=== PATIENT | female | born 1990 | race Caucasian/White ===

== ENCOUNTER 2017-02-21 16:11 | Emergency (ER) | payer MEDICAID ==
[2017-02-21 17:57] LABS: HCG SERUM NEGATIVE (NEGATIVE)
[2017-02-21 18:21] LABS: APPEARANCE CLEAR (CLEAR); COLOR YELLOW (YELLOW)
[2017-02-21 18:22] LABS: BILIRUBIN NEGATIVE (NEGATIVE); GLUCOSE NEGATIVE (NEGATIVE); KETONE NEGATIVE (NEGATIVE); NITRITE NEGATIVE (NEGATIVE); PROTEIN NEGATIVE (NEGATIVE); UROBILINOGEN NORMAL (NORMAL)
[2017-02-21 18:23] LABS: BACTERIA MODERATE /hpf (NONE SEEN); EPITHELIAL CELLS 0-5 /hpf (0-5); RED CELLS - URINE OCC /hpf (0-5); WHITE CELLS - URINE 0-5 /hpf (0-5)
[2017-02-21 19:12] LABS: BASOPHILS 0.5 % (0-2); EOSINOPHILS 4.7 % (0-7); HEMATOCRIT 39.8 % (36.0-48.0); HEMOGLOBIN 13.8 g/dL (12-16); LYMPHOCYTES 39.7 % (15-50); MCH 33.3 pg (26.0-34.0); MCHC 34.7 g/dL (31.0-37.0); MCV 95.9 fL (80.0-100.0); MEAN PLATELET VOLUME 10.9 fL (7.4-10.4); MONOCYTES 7.7 % (2-11); NEUTROPHILS 47.4 % (40-80); PLATELET COUNT 272 10x3/uL (130-400); RBC 4.15 10x6/uL (4.00-5.40); RDW 12.1 % (11.5-14.5)
[2017-02-21 19:17] LABS: ALBUMIN 4.1 g/dL (3.4-5.0); ALKALINE PHOSPHATASE 70 U/L (46-116); ALT (SGPT) 14 U/L (10-68); CALC OSMOLALITY 277 mosm/kg (275-300); CALCIUM 9.6 mg/dL (8.5-10.1); CARBON DIOXIDE 29.6 mmol/L (21.0-32.0); CHLORIDE - SERUM 104 mmol/L (98-107); CREATININE - SERUM 0.5 mg/dL (0.6-1.3); GLUCOSE 96 mg/dL (74-106); POTASSIUM - SERUM 4.3 mmol/L (3.5-5.1); PROTEIN - SERUM 7.6 g/dL (6.4-8.2); SODIUM 140 mmol/L (136-145); UREA NITROGEN 9 mg/dL (7-18); eGFR NON AFRICAN AMERICAN > 90 mL/min (90-120)
== END 2017-02-21 20:13 | disposition home or self-care (01) ==
LOC: D.ER 16:11
PROVIDERS: Emergency Medicine; Physician Assistant
DX: R10.9 Unspecified abdominal pain (principal); N39.0 Urinary tract infection, site not specified

== ENCOUNTER 2018-02-25 12:12 | Emergency (ER) | payer MEDICAID ==
[~2018-02-25] VITALS: Ht 160 cm; Wt 45.5 kg
[2018-02-25 12:23] VITALS: Ht 160 cm; Wt 45.5 kg
[2018-02-25] MEDS ORDERED: CLEOCIN HCL300 MG PO (12:58)
[2018-02-25] MEDS ORDERED: TORADOL10 MG PO (12:58)
[2018-02-25 13:11] VITALS: BP 128/69
== END 2018-02-25 13:11 | disposition home or self-care (01) ==
LOC: D.ER 12:12
DX: K08.89 Other specified disorders of teeth and supporting structures (principal); S02.5XXA Fracture of tooth (traumatic), initial encounter for closed fracture; X58.XXXA Exposure to other specified factors, initial encounter; Y93.89 Activity, other specified; Y92.019 Unspecified place in single-family (private) house as the place of occurrence of the external cause

== ENCOUNTER 2018-03-25 12:51 | Emergency (ER) | payer MEDICAID ==
[~2018-03-25] VITALS: Ht 160 cm; Wt 47.7 kg
[~2018-03-25 12:51] MED LIST: CLEOCIN HCL300 MG PO; TORADOL10 MG PO
[2018-03-25 13:01] VITALS: Ht 160 cm; Wt 47.7 kg
[2018-03-25] MEDS ORDERED: VOLTAREN75 MG PO (16:10)
[2018-03-25] MEDS ORDERED: BACLOFEN20 M1 PO (16:10)
[2018-03-25 16:15] VITALS: BP 146/91
== END 2018-03-25 16:16 | disposition home or self-care (01) ==
LOC: D.ER 12:51
DX: S49.92XA Unspecified injury of left shoulder and upper arm, initial encounter (principal); W18.30XA Fall on same level, unspecified, initial encounter; Y93.89 Activity, other specified; Y92.89 Other specified places as the place of occurrence of the external cause; F17.200 Nicotine dependence, unspecified, uncomplicated

== ENCOUNTER 2018-12-12 09:34 | Emergency (ER) | payer MEDICAID ==
[~2018-12-12] VITALS: Ht 160 cm; Wt 48.2 kg
[~2018-12-12 09:34] MED LIST changes: +BACLOFEN20 M1 PO; +VOLTAREN75 MG PO
[2018-12-12 09:41] VITALS: Ht 160 cm; Wt 48.2 kg
[2018-12-12] MEDS ORDERED: LYRICA75 MG PO (09:43)
[2018-12-12] MEDS ORDERED: KLONOPIN1 MG PO (09:43)
[2018-12-12] MEDS ORDERED: OXYCONTIN10 MG PO (09:44)
[2018-12-12] MEDS ORDERED: ADDERALL 20 MG20 M1 PO (09:44)
[2018-12-12] MEDS ORDERED: ZANAFLEX4 MG PO (09:44)
[2018-12-12] MEDS ORDERED: ACETAMINOPHEN500 M1 PO (09:56)
[2018-12-12] MEDS ORDERED: CYCLOBENZAPRINE10 MG PO (09:56)
[2018-12-12] MEDS ORDERED: IBUPROFEN800 MG PO (09:56)
[2018-12-12 10:09] VITALS: BP 130/88
== END 2018-12-12 10:44 | disposition home or self-care (01) ==
LOC: D.ER 09:34
DX: M54.9 Dorsalgia, unspecified (principal); M54.2 Cervicalgia; G89.29 Other chronic pain; F17.210 Nicotine dependence, cigarettes, uncomplicated